=== PATIENT | female | born 1955 | race Caucasian/White ===

== ENCOUNTER 2020-04-19 19:37 | Observation (INO) ==
[2020-04-19] MEDS ORDERED: NS 1000 ML 1,000 ML ONE (20:05)
[2020-04-19] MEDS: NS 1000 ML 1,000 ML IV SCH (20:10)
[2020-04-19 20:35] LABS: BASOPHILS % (AUTO) 0.2 % (0.2-1.0); EOSINOPHILS # (AUTO) 0.1 x10^3/uL (0.0-0.2); EOSINOPHILS % (AUTO) 1.4 % (0.9-2.9); HEMATOCRIT 39.9 % (36.0-47.0); HEMOGLOBIN 13.8 g/dL (12.0-16.0); LYMPHOCYTES # (AUTO) 2.3 X10^3/uL (1.3-2.9); MEAN CORPUSCULAR HEMOGLOBIN 29.7 pg (27.0-34.0); MEAN CORPUSCULAR HGB CONC 34.5 g/dL (33.0-35.0); MEAN PLATELET VOLUME 7.6 fL (7.4-11.0); MONOCYTES # (AUTO) 0.5 x10^3/uL (0.3-0.8); MONOCYTES % (AUTO) 7.2 % (0.0-13.0); NEUTROPHILS # (AUTO) 3.7 x10^3/uL (2.2-4.8); NEUTROPHILS % (AUTO) 56.2 % (42.0-75.0); PLATELET COUNT 253 X10^3/uL (150.0-450.0); RED BLOOD COUNT 4.64 X10^6/uL (3.5-5.4); RED CELL DISTRIBUTION WIDTH 13.9 % (11.6-16.5); WHITE BLOOD COUNT 6.7 X10^3/uL (3.6-10.0)
[2020-04-19 20:38] LABS: ALANINE AMINOTRANSFERASE 35 Units/L (12-78); ALBUMIN 4.2 g/dL (3.4-5.0); ALKALINE PHOSPHATASE 96 Units/L (46-116); ASPARTATE AMINO TRANSFERASE 26 Units/L (15-37); BLOOD ALCOHOL 3 mg/dL (0-19.9); BLOOD UREA NITROGEN 9 mg/dL (7-18); CALCIUM 9.8 mg/dL (8.5-10.1); CARBON DIOXIDE 32.6 mmol/L (21-32); CHLORIDE 104 mmol/L (98-107); CREATININE 0.86 mg/dL (0.55-1.02); SODIUM 142 mmol/L (136-145); TOTAL PROTEIN 7.8 g/dL (6.4-8.2); eGFR NON BLACK RACES > 60 (>60)
[2020-04-19 20:39] LABS: SALICYLATE < 2.8 mg/dL (2.8-20)
--- NOTE | 2020-04-19 21:10 | DR.DING ---
HPI Time Seen Time Seen by Provider: 04/19/20 19:47 HPI Comment HPI Comment: PATIENT IS 64YR OLD FEMALE IN ER AFTER SHE TOOK A HAND FULL OF HER XANAX AND AMBIEN AT HOME. HISTORY ANXIETY AND DEPRESSION. TONIGHT SHE SAID HER SIGNICANT OTHER LEFT ALL DAY. THIS CAUSE HER TO TAKE 10 PILLS OF XANAX 0.5MG E ACH AND 22 TABS OF AMBIEN 10MG EACH. SLIGHTLY SLEEPY IN ER BUT FULLY AROUSABLE. SHE DENIES HEADACHE, CHEST PAIN, ABDOMINAL PAIN OR NAUSEA OR VOMITING. DENIES SUICIDAL INTENSION. NO HISTORY OF PREVIOUS SUICIDE. NO DYSURIA. DENIES FEVER. DENIES HALLUCINATIONS. Complaint Chief Complaint Doctors Comments: DRUG OVERDOSE. COVID-19 Coronavirus risk:travel/contact w/high risk person: No Has patient experienced Coronavirus symptoms: No Reviewed Nurses Notes Review: Yes Source History Provided: Parent and EMS Mode of Arrival Mode of Arrival: EMS Context Ingestion: Intentional and Ingestion Observed (BY SIGNIFICANT ORTHER.) Expresses: None (SUICIDAL GESTURE.) Stressors: Relationships History of: Depression and Anxiety Severity Severity: Moderate Associated signs and symptoms Associated signs and symptoms: Depression and Anxiety PMH PMH Past Medical History: Anxiety and Depression Past Surgical History: Yes Surgical History: Hysterectomy Family History Family Medical History: Diabetes Mellitus, Cancer, [place], Coronary Artery Disease, Heart Failure and Hypertension Social History Do you use any recreational Drugs:: No ROS Review of Systems Constitutional: No Symptoms Reported, See HPI and Other (SLEEPY BUT AROUSABLE.); negative Fever, Weakness and Fatigue Eyes: No Symptoms Reported and See HPI; negative Blurred Vision and Photophobia ENTM: No Symptoms Reported and See HPI; negative Ear Pain, Nose Discharge, Nose Congestion and Throat Pain Respiratoy: No Symptoms Reported and See HPI; negative Moist Cough, Short of Breath and Wheezing Cardiovascular: No Symptoms Reported and See HPI; negative Chest Pain, Edema and Palpitations Gastrointestinal/Abdominal: No Symptoms Reported and See HPI; negative Abdominal Pain, Diarrhea, Nausea and Vomiting Genitourinary: No Symptoms Reported and See HPI; negative Dysuria, Frequency and Hematuria Neurological: See HPI, Anxiety and Depressed; negative Headache, Weakness and Dizziness Musculoskeletal: No Symptoms Reported and See HPI; negative Back Pain and Muscle Pain Integumentary: No Symptoms Reported and See HPI; negative Change in Color, Rash and Juandice Hematologic/Lymphatic: No Symptoms Reported and See HPI; negative Easy Bruising and Swollen Glands Endocrine: No Symptoms Reported and See HPI; negative Increased Thirst and Increased Urine Psychiatric: No Symptoms Reported and See HPI All Other Systems: Reviewed and Negative PE Vital signs Vitals: Temperature 97.7 F Pulse Rate 79 Respiratory Rate 18 Blood Pressure [Right Arm] 160/75 Blood Pressure 144/67 O2 Sat by Pulse Oximetry 100 General Limitations: No Limitations General Appearance: Alert and In No Apparent Distress Head Head Exam: Normal Inspection and Atraumatic Eyes Eye exam: Normal Appearance, PERRL and EOMI; negative Scleral Icterus and Con junctival Injection Pupils: Regular, Round: Bilateral and Reactive: Bilateral Sclera/Conjunctival: Normal Inspection: Bilateral ENT ENT Exam: Normal Exam, Normal Oropharynx, Normal External Ear Exam and TM's Normal Bilaterally Neck Neck Exam: Normal Inspection and Trachea Midline; negative Tenderness and Lymphadenopathy Chest Chest Inspection: Normal Inspection and Symmetric Chest Wall Rise; negative Tenderness Respiratory Respiratory Exam: Normal Lung Sounds Bilat; negative Accessory Muscle Use, Chest Wall Tenderness and Respiratory Distress Respiratory Exam: Bilateral: Clear to Auscultation Cardiovascular Cardiovascular Exam: Regular Rate, Normal Rhythm and Normal Heart Sounds; negative Systolic Murmur and Diastolic Murmur Abdominal Exam Abdominal Exam: Normal Inspection, Normal Bowel Sounds and Soft; negative Tenderness Extremities Extremities Exam: Normal Inspection and Normal Capillary Refill; negative Tenderness, Edema and Calf Tenderness Back Back Exam: Normal Inspection; negative (R) CVA Tenderness and (L) CVA Tenderness Neurologic Neurological Exam: Alert, Oriented X3, CN II-XII Intact, Normal Gait, Motor Sensory Deficit, Reflexes Normal and Other (SLIGHTLY SLEEPY.) Patient Oriented To: Person, Place and Time Speech: negative Fluid Speech (SPEECH SLOW) Cranial Nerve Exam: EOM Function (II, III, IV, ): Normal, Facial Sensation (V): Normal, Facial Palsy (VII): Normal, Gag reflex (XI): Normal, Spinal Accessory Function (XI): Normal and Tongue Deviation: Normal Motor Strength - LUE: 5/5 Motor Strength - RUE: 5/5 Motor Strength - LLE: 5/5 Motor Strength - RLE: 5/5 Upper Motor Neuron Exam: Babinski Sign: Normal Psychiatric Psychiatric Exam: Agitated and Anxious Expanded Psychiatric Exam: negative Poor Eye Contact (GOOD EYE CONTACT.) Skin Skin Exam: Warm, Dry, Intact and Normal Color MDM Differential Diagnosis Differential Diagnosis: Anxiety, Depression, Intentional drup overdose and Suicidal gesture COURSE Treatment Treatment: SEE ORDERS. PATIENT ADMITTED FOR OBSEVATION. 09-10 FORM SIGN, PATIENT NOT MEDICALLY CLEAR AT THIS TIME. Consultation Consultation Comments: DISCUSSED PATIENT WITH DR. CAAL. HE WILL ADMIT PATIENT. Education/Counseling Education/Counseling: Patient Educated On: Diagnosis ROR Labs Reviewed Laboratory Results Reviewed?: Yes Result Diagrams: 04/19/20 20:14 04/19/20 20:14 Laboratory: WBC 6.7 X10^3/uL (3.6-10.0) 04/19/20 20:14 RBC 4.64 X10^6/uL (3.5-5.4) 04/19/20 20:14 Hgb 13.8 g/dL (12.0-16.0) 04/19/20 20:14 Hct 39.9 % (36.0-47.0) 04/19/20 20:14 MCV 86.0 fL (80.0-100.0) 04/19/20 20:14 MCH 29.7 pg (27.0-34.0) 04/19/20 20:14 MCHC 34.5 g/dL (33.0-35.0) 04/19/20 20:14 RDW 13.9 % (11.6-16.5) 04/19/20 20:14 Plt Count 253 X10^3/uL (150.0-450.0) 04/19/20 20:14 MPV 7.6 fL (7.4-11.0) 04/19/20 20:14 Neut % (Auto) 56.2 % (42.0-75.0) 04/19/20 20:14 Lymph % (Auto) 35.0 % (21.0-51.0) 04/19/20 20:14 [place] % (Auto) 7.2 % (0.0-13.0) 04/19/20 20:14 Eos % (Auto) 1.4 % (0.9-2.9) 04/19/20 20:14 Baso % (Auto) 0.2 % (0.2-1.0) 04/19/20 20:14 Neut # (Auto) 3.7 x10^3/uL (2.2-4.8) 04/19/20 20:14 Lymph # (Auto) 2.3 X10^3/uL (1.3-2.9) 04/19/20 20:14 [place] # (Auto) 0.5 x10^3/uL (0.3-0.8) 04/19/20 20:14 Eos # (Auto) 0.1 x10^3/uL (0.0-0.2) 04/19/20 20:14 Baso # (Auto) 0.0 X10^3/uL (0.0-0.1) 04/19/20 20:14 Absolute Nucleated RBC 0.0 /100WBC 04/19/20 20:14 Sodium 142 mmol/L (136-145) 04/19/20 20:14 Corrected Sodium TNP 04/19/20 20:14 Potassium 3.7 mmol/L (3.5-5.1) 04/19/20 20:14 Chloride 104 mmol/L (98-107) 04/19/20 20:14 Carbon Dioxide 32.6 mmol/L (21-32) H 04/19/20 20:14 BUN 9 mg/dL (7-18) 04/19/20 20:14 Creatinine 0.86 mg/dL (0.55-1.02) 04/19/20 20:14 Est GFR (MDRD) Af Amer > 60 (>60) 04/19/20 20:14 Est GFR (MDRD) Non-Af > 60 (>60) 04/19/20 20:14 Glucose 105 mg/dL (65-99) H 04/19/20 20:14 Calcium 9.8 mg/dL (8.5-10.1) 04/19/20 20:14 Corrected Calcium TNP 04/19/20 20:14 Total Bilirubin 0.50 mg/dL (0.2-1.0) 04/19/20 20:14 AST 26 Units/L (15-37) 04/19/20 20:14 ALT 35 Units/L (12-78) 04/19/20 20:14 Alkaline Phosphatase 96 Units/L (46-116) 04/19/20 20:14 Total Protein 7.8 g/dL (6.4-8.2) 04/19/20 20:14 Albumin 4.2 g/dL (3.4-5.0) 04/19/20 20:14 Globulin 3.6 g/dL (2.5-4.5) 04/19/20 20:14 Albumin/Globulin Ratio 1.2 Ratio (1.1-2.1) 04/19/20 20:14 Specimen Type Clean catch urine 04/19/20 21:06 Urine Color Yellow (YELLOW) 04/19/20 21:06 Urine Appearance Hazy (CLEAR) 04/19/20 21:06 Urine pH 7.0 (5.0 - 8.0) 04/19/20 21:06 Ur Specific [place] 1.010 (1.000-1.030) 04/19/20 21:06 Urine Protein Negative (NEGATIVE) 04/19/20 21: Urine Glucose (UA) Negative (NEGATIVE) 04/19/20 21: Urine Ketones Negative (NEGATIVE) 04/19/20 21: Urine Occult Blood 1+ (NEGATIVE) 04/19/20 21: Urine Nitrite Positive (NEGATIVE) 04/19/20 21: Urine Bilirubin Negative (NEGATIVE) 04/19/20 21:06 Urine Urobilinogen Normal (NORMAL) 04/19/20 21:06 Ur Leukocyte Esterase 3+ (NEGATIVE) 04/19/20 21: Urine RBC 3-5 /HPF (0-3) A 04/19/20 21: Urine WBC 20-30 /HPF (0-5) A 04/19/20 21:06 Ur Squamous Epith Cells Few /HPF (NEGATIVE) 04/19/20 21:06 Urine Bacteria 2+ /HPF (NEGATIVE) 04/19/20 21:06 Ur Culture Indicated? Yes/culture set up 04/19/20 21:06 Salicylates < 2.8 mg/dL (2.8-20) L 04/19/20 20:14 Urine Opiates Screen Negative (NEG=<300) 04/19/20 21:06 Urine Methadone Screen Negative (NEG=<300) 04/19/20 21:06 Acetaminophen 0.0 ug/mL (10-30) L 04/19/20 20:14 Ur Barbiturates Screen Negative (NEG=<200) 04/19/20 21:06 Ur Phencyclidine Scrn Negative (NEG=<25) 04/19/20 21:06 Ur Amphetamines Screen Negative (NEG=<1000) 04/19/20 21:06 U Benzodiazepines Scrn Positive (NEG=<200) A 04/19/20 21:06 Urine Cocaine Screen Negative (NEG=<300) 04/19/20 21:06 U Marijuana (THC) Screen Negative (NEG=<50) 04/19/20 21:06 Ethyl Alcohol mg/dL 3 mg/dL (0-19.9) 04/19/20 20:14 Other Results Comments: Chest AP portable Indication: Dyspnea COMPARISON No recent similar prior chest FINDINGS Monitor leads obscure significant detail. There is no pneumothorax, effusion or consolidation. Heart size is normal IMPRESSION No acute chest process. XRAY XRAY Interpreted by: Radiologist (REPORT NOTED AND DISCUSSED WITH PATIENT.) and Self (NO ACUTE FINDINGS.) EKG Rhythm: NSR (BASELINE WONDERING WITH ARTIFACT IN SEVERAL LEADS) Opioid Opioid Risk Tool Age (Keagan box if 16-45): No Total: 0 Total Score Risk Category: Low Risk Copyright: [facility] predicting aberrant behaviors Diagnosis Discharge Problem: Anxiety and depression Acute drug overdose Qualifiers: Encounter type: initial encounter Injury intent: intentional self-harm Qualified Code(s): T50.902A - Poisoning by unspecified drugs, medicaments and biological substances, intentional self-harm, initial encounter Suicidal behavior Qualifiers: Attempted self-injury: with attempted self-injury Qualified Code(s): T14.91XA - Suicide attempt, initial encounter UTI (urinary tract infection) Qualifiers: Urinary tract infection type: site unspecified Hematuria presence: with hematuria Qualified Code(s): N39.0 - Urinary tract infection, site not specified
[2020-04-19 21:15] LABS: BILIRUBIN,URINE NEGATIVE (NEGATIVE); BLOOD/HEMOGLOBIN,URINE 1+ (NEGATIVE); GLUCOSE, URINE NEGATIVE (NEGATIVE); KETONES,URINE NEGATIVE (NEGATIVE); LEUKOCYTE ESTERASE ,URINE 3+ (NEGATIVE); NITRITES,URINE POSITIVE (NEGATIVE); PROTEIN,URINE NEGATIVE (NEGATIVE); UROBILINOGEN,URINE NORMAL (NORMAL)
[2020-04-19 21:21] LABS: APPEARANCE,URINE HAZY (CLEAR); COLOR,URINE YELLOW (YELLOW)
[2020-04-19 21:22] LABS: BACTERIA,URINE 2+ /HPF (NEGATIVE); SQUAMOUS EPITHELIAL CELL,UR FEW /HPF (NEGATIVE)
--- NOTE | 2020-04-19 21:23 | RAD ---
Chest AP portableIndication: DyspneaCOMPARISONNo recent similar prior chestFINDINGSMonitor leads obscure significant detail. There is no pneumothorax, effusion or consolidation. Heart size is normalIMPRESSIONNo acute chest process.Electronically signed by: RHIANNON URIARTE (April 19, 2020 21:21:35)
[2020-04-19] MEDS ORDERED: ROCEPHIN VIAL 1 GRAM IV ONE (21:29)
[2020-04-19] MEDS ORDERED: NS 100 ML IV 100 ML IV ONE ×2 (21:55→22:05)
[2020-04-19] MEDS ORDERED: ROCEPHIN VIAL 1 GRAM ONE (21:56)
[2020-04-20 00:53] VITALS: BMI 26.6
[2020-04-20] MEDS: NS 1000 ML 1,000 ML IV SCH (03:32)
[2020-04-20 06:03] LABS: BASOPHILS % (AUTO) 0.2 % (0.2-1.0); EOSINOPHILS # (AUTO) 0.1 x10^3/uL (0.0-0.2); EOSINOPHILS % (AUTO) 1.3 % (0.9-2.9); HEMATOCRIT 37.7 % (36.0-47.0); HEMOGLOBIN 12.8 g/dL (12.0-16.0); LYMPHOCYTES # (AUTO) 2.3 X10^3/uL (1.3-2.9); LYMPHOCYTES % (AUTO) 32.1 % (21.0-51.0); MEAN CORPUSCULAR HEMOGLOBIN 29.2 pg (27.0-34.0); MEAN CORPUSCULAR HGB CONC 34.1 g/dL (33.0-35.0); MEAN CORPUSCULAR VOLUME 85.7 fL (80.0-100.0); MEAN PLATELET VOLUME 7.9 fL (7.4-11.0); MONOCYTES # (AUTO) 0.5 x10^3/uL (0.3-0.8); MONOCYTES % (AUTO) 7.3 % (0.0-13.0); NEUTROPHILS # (AUTO) 4.3 x10^3/uL (2.2-4.8); NEUTROPHILS % (AUTO) 59.1 % (42.0-75.0); PLATELET COUNT 232 X10^3/uL (150.0-450.0); RED BLOOD COUNT 4.39 X10^6/uL (3.5-5.4); RED CELL DISTRIBUTION WIDTH 13.7 % (11.6-16.5); WHITE BLOOD COUNT 7.2 X10^3/uL (3.6-10.0)
[2020-04-20 06:28] LABS: ALANINE AMINOTRANSFERASE 31 Units/L (12-78); ALBUMIN 3.6 g/dL (3.4-5.0); ALKALINE PHOSPHATASE 82 Units/L (46-116); ASPARTATE AMINO TRANSFERASE 24 Units/L (15-37); BLOOD UREA NITROGEN 9 mg/dL (7-18); CALCIUM 8.8 mg/dL (8.5-10.1); CARBON DIOXIDE 30.4 mmol/L (21-32); CHLORIDE 105 mmol/L (98-107); COR NA(FOR HYPERGLY) 142 mmol/L (136-145); CREATININE 0.83 mg/dL (0.55-1.02); SODIUM 141 mmol/L (136-145); TOTAL PROTEIN 6.9 g/dL (6.4-8.2); eGFR NON BLACK RACES > 60 (>60)
[2020-04-20] MEDS ORDERED: MAGNESIUM SULFATE 1 GRAM/100 mL PREMIX 1 GM/100 ML BAG IV PRN (06:39)
[2020-04-20] MEDS ORDERED: POTASSIUM CHL 60 MEQ/NS 0.45% 500 ML IV PRN (06:39)
[2020-04-20] MEDS ORDERED: MICRO K EXTEN CAP 10 MEQ PO PRN (06:39)
[2020-04-20] MEDS ORDERED: K-DUR TAB 20 MEQ PO PRN (06:39)
[2020-04-20] MEDS ORDERED: POTASSIUM CHLORIDE LIQ 20 MEQ UDC PO PRN (06:39)
[2020-04-20] MEDS ORDERED: K-RIDER 10 MEQ/NS 100 ML 10 MEQ/100 ML BAG IV PRN (06:39)
[2020-04-20] MEDS ORDERED: POTASSIUM CHL 40 MEQ/NS 0.45% 500 ML IV PRN (06:39)
[2020-04-20] MEDS ORDERED: KLOR-CON PO PRN (06:39)
[2020-04-20] MEDS ORDERED: MILK OF MAGNESIA PO SCH (09:00)
[2020-04-20] MEDS: CARIPRAZINE 3 MG PO SCH ×2 (09:00→11:53)
--- NOTE | 2020-04-20 10:30 | DR.H&P ---
H&P History & Physical for Day of: H&P Date: 04/20/20 Chief Complaint Chief Complaint: drug overdose Allergies Allergies Allergy/AdvReac Type Severity Reaction Status Date / Time No Known Drug Allergies Allergy Verified 10/18/19 12:15 History of Present Illness History of Present Illness: Ms. Myers is a 64y/o female with a hx of anxiety, depression and insomnia was found to be very drowsy at home due to concern of drug overdose with Ambien and Xanax. Patient states she has been depressed for the past few weeks and has not slept well so she decided to take Xanax and ambien to help her sleep. She states she did not take the entire bottle but unsure how many pills. She denies doing this to hurt or kill herself. She denies suicidal or homicidal ideations. No prior hx of drug overdose. She denies N/V/D or abdominal pain, no chest pain or SOB. Her PCP is Dr. Pollard. She is awake, alert and ambulating in the room. ED work-up: On admission, patient was sleepy but arousable, CXR (-) Labs: K 3.0 UA: WBC 20-30, THERESE and nitrites present Patient was started on IVF, Rocephin Poison control was called and advised to monitor patient for 10 hrs 1013 was placed due to concern for suicidal attempt Plan: Patient is medically cleared. Will notify mental health. Past Medical History Past Medical History: Anxiety and Depression Past Surgical History Surgical History: Hysterectomy, Tonsillectomy and Other Family History Family Medical History: Diabetes Mellitus, Cancer, [place], Coronary Artery Disease, Heart Failure and Hypertension Social History Does patient currently use any type of tobacco product: No Have you used tobacco products in the last 12 months: No Type of Tobacco Use: None Does any household member use tobacco: No Alcohol Use: None Drug Use: None Medications Home Medications: No Known Drug Allergies Allergy (Verified 10/18/19 12:15) CONTINUE taking the following medications alprazolam [Xanax] 0.5 mg PO TID PRN 04/19/20 [History] cariprazine [Vraylar] 3 mg PO DAILY 04/19/20 [History] zolpidem [Ambien] 10 mg PO HS 04/19/20 [History] Labs Result Diagrams: 04/20/20 04:03 04/20/20 09:57 Labs: Laboratory WBC 7.2 X10^3/uL (3.6-10.0) 04/20/20 04:03 RBC 4.39 X10^6/uL (3.5-5.4) 04/20/20 04:03 Hgb 12.8 g/dL (12.0-16.0) 04/20/20 04:03 Hct 37.7 % (36.0-47.0) 04/20/20 04:03 MCV 85.7 fL (80.0-100.0) 04/20/20 04:03 MCH 29.2 pg (27.0-34.0) 04/20/20 04:03 MCHC 34.1 g/dL (33.0-35.0) 04/20/20 04:03 RDW 13.7 % (11.6-16.5) 04/20/20 04:03 Plt Count 232 X10^3/uL (150.0-450.0) 04/20/20 04:03 MPV 7.9 fL (7.4-11.0) 04/20/20 04:03 Neut % (Auto) 59.1 % (42.0-75.0) 04/20/20 04:03 Lymph % (Auto) 32.1 % (21.0-51.0) 04/20/20 04:03 [place] % (Auto) 7.3 % (0.0-13.0) 04/20/20 04:03 Eos % (Auto) 1.3 % (0.9-2.9) 04/20/20 04:03 Baso % (Auto) 0.2 % (0.2-1.0) 04/20/20 04:03 Neut # (Auto) 4.3 x10^3/uL (2.2-4.8) 04/20/20 04:03 Lymph # (Auto) 2.3 X10^3/uL (1.3-2.9) 04/20/20 04:03 [place] # (Auto) 0.5 x10^3/uL (0.3-0.8) 04/20/20 04:03 Eos # (Auto) 0.1 x10^3/uL (0.0-0.2) 04/20/20 04:03 Baso # (Auto) 0.0 X10^3/uL (0.0-0.1) 04/20/20 04:03 Absolute Nucleated RBC 0.0 /100WBC 04/20/20 04:03 Sodium 141 mmol/L (136-145) 04/20/20 04:03 Corrected Sodium 142 mmol/L (136-145) 04/20/20 04:03 Potassium 4.1 mmol/L (3.5-5.1) 04/20/20 09:57 Chloride 105 mmol/L (98-107) 04/20/20 04:03 Carbon Dioxide 30.4 mmol/L (21-32) 04/20/20 04:03 BUN 9 mg/dL (7-18) 04/20/20 04:03 Creatinine 0.83 mg/dL (0.55-1.02) 04/20/20 04:03 Est GFR (MDRD) Af Amer > 60 (>60) 04/20/20 04:03 Est GFR (MDRD) Non-Af > 60 (>60) 04/20/20 04:03 Glucose 136 mg/dL (65-99) H 04/20/20 04:03 Calcium 8.8 mg/dL (8.5-10.1) 04/20/20 04:03 Corrected Calcium TNP 04/20/20 04:03 Magnesium 2.0 mg/dL (1.7-2.9) 04/20/20 04:03 Total Bilirubin 0.40 mg/dL (0.2-1.0) 04/20/20 04:03 AST 24 Units/L (15-37) 04/20/20 04:03 ALT 31 Units/L (12-78) 04/20/20 04:03 Alkaline Phosphatase 82 Units/L (46-116) 04/20/20 04:03 Total Protein 6.9 g/dL (6.4-8.2) 04/20/20 04:03 Albumin 3.6 g/dL (3.4-5.0) 04/20/20 04:03 Globulin 3.3 g/dL (2.5-4.5) 04/20/20 04:03 Albumin/Globulin Ratio 1.1 Ratio (1.1-2.1) 04/20/20 04:03 Specimen Type Clean catch urine 04/19/20 21:06 Urine Color Yellow (YELLOW) 04/19/20 21:06 Urine Appearance Hazy (CLEAR) 04/19/20 21:06 Urine pH 7.0 (5.0 - 8.0) 04/19/20 21:06 Ur Specific [place] 1.010 (1.000-1.030) 04/19/20 21:06 Urine Protein Negative (NEGATIVE) 04/19/20 21:06 Urine Glucose (UA) Negative (NEGATIVE) 04/19/20 21:06 Urine Ketones Negative (NEGATIVE) 04/19/20 21:06 Urine Occult Blood 1+ (NEGATIVE) 04/19/20 21: Urine Nitrite Positive (NEGATIVE) 04/19/20 21: Urine Bilirubin Negative (NEGATIVE) 04/19/20 21: Urine Urobilinogen Normal (NORMAL) 04/19/20 21:06 Ur Leukocyte Esterase 3+ (NEGATIVE) 04/19/20 21:06 Urine RBC 3-5 /HPF (0-3) A 04/19/20 21: Urine WBC 20-30 /HPF (0-5) A 04/19/20 21:06 Ur Squamous Epith Cells Few /HPF (NEGATIVE) 04/19/20 21:06 Urine Bacteria 2+ /HPF (NEGATIVE) 04/19/20 21:06 Ur Culture Indicated? Yes/culture set up 04/19/20 21:06 Salicylates < 2.8 mg/dL (2.8-20) L 04/19/20 20:14 Urine Opiates Screen Negative (NEG=<300) 04/19/20 21:06 Urine Methadone Screen Negative (NEG=<300) 04/19/20 21:06 Acetaminophen 0.0 ug/mL (10-30) L 04/19/20 20:14 Ur Barbiturates Screen Negative (NEG=<200) 04/19/20 21:06 Ur Phencyclidine Scrn Negative (NEG=<25) 04/19/20 21:06 Ur Amphetamines Screen Negative (NEG=<1000) 04/19/20 21:06 U Benzodiazepines Scrn Positive (NEG=<200) A 04/19/20 21: Urine Cocaine Screen Negative (NEG=<300) 04/19/20 21: U Marijuana (THC) Screen Negative (NEG=<50) 04/19/20 21:06 Ethyl Alcohol mg/dL 3 mg/dL (0-19.9) 04/19/20 20:14 Review of Systems Constitutional: No Symptoms Reported Eyes: No Symptoms Reported ENT: No Symptoms Reported Respiratory: No Symptoms Reported Cardiovascular: No Symptoms Reported Gastrointestinal: No Symptoms Reported Genitourinary: Frequency; denies Dysuria and Hematuria Musculoskeletal: No Symptoms Reported Skin: No Symptoms Reported Neurological: No Symptoms Reported Physical Exam Vital Signs: Temperature 97.8 F Pulse Rate [Right] 79 Pulse Rate 67 Respiratory Rate 18 Blood Pressure [Left Arm] 121/56 Blood Pressure [Right Arm] 106/56 Blood Pressure 155/67 O2 Sat by Pulse Oximetry 96 Oriented: Normal Eyes: Normal Ear: Normal Nose: Normal Throat: Normal Respiratory: Clear Throughout Cardiovascular: Normal Auscultation: Bowel Sounds: Normal Palpation: Normal Tenderness: Normal Skin: Normal Musculoskeletal: Normal Psychiatric: Normal Mood Description: Calm Affect: Normal Speech Pattern: Clear and Appropriate Assessment/Plan (1) Acute drug overdose: Qualifiers: Encounter type: initial encounter Injury intent: intentional self-harm Qualified Code(s): T50.902A - Poisoning by unspecified drugs, medicaments and biological substances, intentional self-harm, initial encounter Status: Acute (2) Suicidal behavior: Qualifiers: Attempted self-injury: with attempted self-injury Qualified Code(s): T1 4.91XA - Suicide attempt, initial encounter Status: Acute (3) Anxiety and depression: Status: Acute (4) UTI (urinary tract infection): Qualifiers: Hematuria presence: with hematuria Urinary tract infection type: site unspecified Qualified Code(s): N39.0 - Urinary tract infection, site not specified; R31.9 - Hematuria, unspecified Status: Acute (5) Constipation: Qualifiers: Constipation type: drug induced constipation Qualified Code(s): K59.03 - Drug induced constipation Status: Acute (6) Hypokalemia: Status: Acute Review H&P Reviewed: Yes Patient was examined?: Yes
[2020-04-20 12:03] VITALS: BP 141/60
[2020-04-20] MEDS ORDERED: COLACE CAP 100 MG PO SCH (21:00)
[2020-04-20] MEDS ORDERED: ROCEPHIN VIAL 1 GRAM 1 G in NS 100 ML IV + SPIKE MINIBAG* 100 ML IV SCH (21:00)
== END 2020-04-20 14:30 | disposition home or self-care (01) ==
LOC: ER 19:38 → MED/SURG 19:38
PROVIDERS: ADMIT Family Medicine; ATTEND Internal Medicine
DX: F41.8 Other specified anxiety disorders; B96.29 Other Escherichia coli [E. coli] as the cause of diseases classified elsewhere; Y92.009 Unspecified place in unspecified non-institutional (private) residence as the place of occurrence of the external cause; R94.31 Abnormal electrocardiogram [ECG] [EKG]; T42.6X2A Poisoning by other antiepileptic and sedative-hypnotic drugs, intentional self-harm, initial encounter; R31.9 Hematuria, unspecified; N39.0 Urinary tract infection, site not specified; T42.4X2A Poisoning by benzodiazepines, intentional self-harm, initial encounter; K59.03 Drug induced constipation; E87.6 Hypokalemia; T14.91XA Suicide attempt, initial encounter; F32.89 Other specified depressive episodes
CPT/HCPCS: 36415; 71010; 71045; 80053; 80307; 80320; 81001; 83735; 84132; 85025; 87086; 87088; 87186; 93005; 94760; 96360; 96361; 96365; 96367; 96374; 99284; A4222; G0378; J0696; J7030; J7050